=== PATIENT | male | born 1980 ===

== ENCOUNTER 2023-09-02 20:29 | Inpatient (IN) | payer OTHER ==
[~2023-09-02] VITALS: Ht 170.2 cm; Wt 77.4 kg
[2023-09-02 20:58] LABS: APPEARANCE,URINE CLEAR (CLEAR); BILIRUBIN,URINE NEGATIVE (NEGATIVE); COLOR,URINE YELLOW (YELLOW); GLUCOSE, URINE (UA) NEGATIVE (NEGATIVE); KETONES,URINE NEGATIVE (NEGATIVE); LEUKOCYTE ESTERASE ,URINE NEGATIVE Leu/uL (NEGATIVE); NITRATE,URINE NEGATIVE (NEGATIVE); OCCULT BLOOD,URINE MODERATE (NEGATIVE); PH,URINE 6.5 (5.0-8.0); PROTEIN,URINE 20 mg/dL (NEGATIVE); UROBILINOGEN,URINE 0.2 mg/dL (0.2-1.0)
[2023-09-02 21:00] LABS: ADD UA MICROSCOPIC YES
[2023-09-02 21:07] LABS: RAPID GROUP A STREP negative (NEGATIVE)
[2023-09-02 21:11] LABS: SARS-CoV-2, RNA, NAAT NEGATIVE SARS CoV-2 (NEGATIVE)
[2023-09-02 21:14] LABS: WBC,URINE 0-1 /HPF (0-1)
[2023-09-02 21:16] LABS: INFLUENZA TYPE A Negative For Type A (NEGATIVE); INFLUENZA TYPE B Negative For Type B (NEGATIVE)
[2023-09-02 22:10] LABS: BASOPHILS # (AUTO) 0.06 K/uL (0.00-0.20); BASOPHILS % (AUTO) 0.4 % (0.0-5.0); EOSINOPHILS # (AUTO) 1.81 K/uL (0.00-0.70); EOSINOPHILS % (AUTO) 11.7 % (0.0-8.0); HEMATOCRIT 49.7 % (42-54); IMMATURE GRANULOCYTE ABSOLUTE 0.07 K/uL (0-1); LYMPHOCYTES % (AUTO) 6.5 % (21.0-51.0); MEAN CORPUSCULAR HEMOGLOBIN 30.6 pg (27.0-33.0); MEAN CORPUSCULAR HGB CONC 35.8 g/dL (32.0-36.0); MEAN CORPUSCULAR VOLUME 85.4 fL (79-99); MONOCYTES # (AUTO) 0.8 K/uL (0.1-1.0); NEUTROPHILS # (AUTO) 11.8 K/uL (1.8-7.7); NEUTROPHILS % (AUTO) 75.9 % (40.0-77.0); PLATELET COUNT (AUTO) 154 K/uL (130-400); RED BLOOD CELL COUNT(AUTO) 5.82 MIL/uL (4.50-6.20); RED CELL DISTRIBUTION WIDTH 12.6 % (11.0-15.5); WHITE BLOOD COUNT (AUTO) 15.5 K/uL (4.8-10.8)
[2023-09-02 22:18] LABS: CREATININE 0.8 mg/dL (0.5-1.3); POTASSIUM 3.6 mmol/L (3.5-5.1)
[2023-09-02 22:23] LABS: ALBUMIN 3.4 g/dL (3.5-5.0); BILIRUBIN,TOTAL 5.4 mg/dL (0.2-1.0); TOTAL PROTEIN, SERUM 7.6 g/dL (6.0-8.3)
[2023-09-02 23:31] LABS: WBC MORPHOLOGY CONSISTENT W/DIFF
[2023-09-02] MEDS ORDERED: IOHEXOL-350 75 ML VIAL IV ONE (23:56)
[2023-09-03] VITALS (16 sets, daily range): BP systolic 98–147; BP diastolic 64–80; PULSE 83–120; RESP 15–22; O2SAT 97–98
[2023-09-03] MEDS: FAMOTIDINE 20MG VIAL IV STA (00:28)
[2023-09-03] MEDS: KETOROLAC 15MG/ML VIAL (15MG/ML) IV ONE (00:28)
[2023-09-03] MEDS: 0.9%NACL 1000ML 1,000 ML IV STA (00:29)
[2023-09-03] MEDS: ONDANSETRON 4MG INJ IVP STA (00:29)
[2023-09-03] MEDS ORDERED: NITROGLYCERIN 0.4 MG SL TAB SL PRN (03:00)
[2023-09-03] MEDS ORDERED: MORPHINE 4 MG SYG IV PRN (03:00)
[2023-09-03] MEDS ORDERED: ONDANSETRON 4MG INJ IV PRN (03:00)
[2023-09-03] MEDS: ASPIRIN 81MG CHEW TAB PO ONE (03:53)
[2023-09-03] MEDS: LACTATED RINGERS 1000ML 1,000 ML IV SCH (03:54)
[2023-09-03 05:22] LABS: BASOPHILS # (AUTO) 0.04 K/uL (0.00-0.20); BASOPHILS % (AUTO) 0.3 % (0.0-5.0); EOSINOPHILS # (AUTO) 0.01 K/uL (0.00-0.70); EOSINOPHILS % (AUTO) 0.1 % (0.0-8.0); HEMATOCRIT 45.9 % (42-54); IMMATURE GRANULOCYTE ABSOLUTE 0.08 K/uL (0-1); LYMPHOCYTES # (AUTO) 0.8 K/uL (1.0-4.8); LYMPHOCYTES % (AUTO) 5.8 % (21.0-51.0); MEAN CORPUSCULAR HGB CONC 35.1 g/dL (32.0-36.0); MEAN CORPUSCULAR VOLUME 88.4 fL (79-99); MONOCYTES # (AUTO) 1.4 K/uL (0.1-1.0); MONOCYTES % (AUTO) 9.8 % (3.0-13.0); NEUTROPHILS # (AUTO) 11.9 K/uL (1.8-7.7); NEUTROPHILS % (AUTO) 83.4 % (40.0-77.0); PLATELET COUNT (AUTO) 138 K/uL (130-400); RED BLOOD CELL COUNT(AUTO) 5.19 MIL/uL (4.50-6.20); RED CELL DISTRIBUTION WIDTH 12.6 % (11.0-15.5); WHITE BLOOD COUNT (AUTO) 14.3 K/uL (4.8-10.8)
[2023-09-03 05:32] LABS: INR 1.13 (0.85-1.15); PROTHROMBIN TIME 12.1 SEC (9.6-11.6)
[2023-09-03 05:33] LABS: PARTIAL THROMBOPLASTIN TIME 28.5 SEC (26.3-35.5)
[2023-09-03 05:54] LABS: ALBUMIN 2.8 g/dL (3.5-5.0); BILIRUBIN,TOTAL 4.7 mg/dL (0.2-1.0); CREATININE 0.8 mg/dL (0.5-1.3); MAGNESIUM 1.9 mg/dL (1.80-2.40); PHOSPHORUS 1.2 mg/dL (2.5-4.9); POTASSIUM 3.4 mmol/L (3.5-5.1); TOTAL PROTEIN, SERUM 6.6 g/dL (6.0-8.3)
[2023-09-03] MEDS: FAMOTIDINE 20MG VIAL IV SCH (08:18)
[2023-09-03] MEDS: ASPIRIN 81MG CHEW TAB PO SCH (08:18)
[2023-09-03] MEDS ORDERED: POTASSIUM CHLORIDE 20MEQ/100ML 100 ML IV PRN (10:30)
[2023-09-03] MEDS: KCL 20 MEQ ERTAB PO PRN (10:54)
[2023-09-03] MEDS: ZOSYN 3.375GM +NS 50ML IV SCH (10:54)
[2023-09-03] MEDS: ACETAMINOPHEN 325 MG TAB PO PRN (11:08)
[2023-09-03] MEDS ORDERED: PROPOFOL 10 MG/ML 20ML VIAL IV ONE (14:49)
[2023-09-04] VITALS (8 sets, daily range): BP systolic 100–137; BP diastolic 59–83; PULSE 79–116; RESP 18–24; O2SAT 96–97
[2023-09-04] MEDS: KETOROLAC 30MG VIAL (30MG/ML) IVP ONE (00:47)
[2023-09-04] MEDS: KETOROLAC 30MG VIAL (30MG/ML) ONE (00:48)
[2023-09-04 03:37] LABS: BASOPHILS # (AUTO) 0.02 K/uL (0.00-0.20); BASOPHILS % (AUTO) 0.2 % (0.0-5.0); HEMATOCRIT 41.1 % (42-54); IMMATURE GRANULOCYTE ABSOLUTE 0.03 K/uL (0-1); LYMPHOCYTES # (AUTO) 0.5 K/uL (1.0-4.8); LYMPHOCYTES % (AUTO) 5.7 % (21.0-51.0); MEAN CORPUSCULAR HEMOGLOBIN 30.5 pg (27.0-33.0); MEAN CORPUSCULAR HGB CONC 35.3 g/dL (32.0-36.0); MEAN CORPUSCULAR VOLUME 86.3 fL (79-99); MONOCYTES # (AUTO) 0.9 K/uL (0.1-1.0); MONOCYTES % (AUTO) 10.2 % (3.0-13.0); NEUTROPHILS # (AUTO) 7.3 K/uL (1.8-7.7); NEUTROPHILS % (AUTO) 83.6 % (40.0-77.0); PLATELET COUNT (AUTO) 131 K/uL (130-400); RED BLOOD CELL COUNT(AUTO) 4.76 MIL/uL (4.50-6.20); RED CELL DISTRIBUTION WIDTH 12.6 % (11.0-15.5); WHITE BLOOD COUNT (AUTO) 8.7 K/uL (4.8-10.8)
[2023-09-04 03:55] LABS: ALBUMIN 2.6 g/dL (3.5-5.0); BILIRUBIN,TOTAL 2.6 mg/dL (0.2-1.0); MAGNESIUM 1.9 mg/dL (1.80-2.40); POTASSIUM 3.6 mmol/L (3.5-5.1); TOTAL PROTEIN, SERUM 6.5 g/dL (6.0-8.3)
[2023-09-04] MEDS: MAGNESIUM 2GM PREMIX 50ML 50 ML IV PRN (04:09)
[2023-09-04] MEDS: PANTOPRAZOLE 40 MG TAB DR PO SCH (09:29)
[2023-09-04] MEDS: MAGNESIUM CITRATE 296 ML SOLUTION PO ONE (14:18)
[2023-09-04 14:25] LABS: HEPATITIS A IGM ANTIBODY Non-Reactive (Nonreactive); HEPATITIS B CORE IGM ANTIBODY Non-Reactive (Negative); HEPATITIS B SURFACE ANTIGEN Non-Reactive (Nonreactive); HEPATITIS C ANTIBODY Non-Reactive (Nonreactive)
[2023-09-04] MEDS: ACETAMINOPHEN 325 MG TAB PO PRN (19:39)
[2023-09-05] VITALS (9 sets, daily range): BP systolic 106–137; BP diastolic 60–82; PULSE 74–103; RESP 14–20; O2SAT 97
[2023-09-05 03:27] LABS: HEMATOCRIT 40.4 % (42-54); MEAN CORPUSCULAR HEMOGLOBIN 30.9 pg (27.0-33.0); MEAN CORPUSCULAR HGB CONC 36.1 g/dL (32.0-36.0); MEAN CORPUSCULAR VOLUME 85.4 fL (79-99); PLATELET COUNT (AUTO) 135 K/uL (130-400); RED BLOOD CELL COUNT(AUTO) 4.73 MIL/uL (4.50-6.20); RED CELL DISTRIBUTION WIDTH 12.6 % (11.0-15.5); WHITE BLOOD COUNT (AUTO) 6.9 K/uL (4.8-10.8)
[2023-09-05 03:43] LABS: ALBUMIN 2.4 g/dL (3.5-5.0); BILIRUBIN,TOTAL 1.3 mg/dL (0.2-1.0); CREATININE 0.8 mg/dL (0.5-1.3); POTASSIUM 3.4 mmol/L (3.5-5.1); TOTAL PROTEIN, SERUM 6.4 g/dL (6.0-8.3)
[2023-09-05 06:22] LABS: LYMPHOCYTES % (MANUAL) 12 % (22-44); MAN.DIFF COMMENT-IMPRESSION MANUAL DIFFERENTIAL; MONOCYTES % (MANUAL) 14 % (2-9); PLATELET MORPHOLOGY COMMENT ADEQUATE; REACTIVE LYMPHOCYTES 2 % (0-0); SEGMENTED NEUTROPHILS % 72 % (40-70); TOTAL CELLS COUNTED 100
[2023-09-06] VITALS (36 sets, daily range): BP systolic 86–129; BP diastolic 49–83; PULSE 60–107; RESP 12–24; TEMP 100.1; O2SAT 96
[2023-09-06] MEDS: POTASSIUM CHLORIDE 20MEQ/100ML 100 ML IV PRN (07:56)
[2023-09-06] MEDS ORDERED: DEXAMETHASONE SOD PHOSPHATE 10MG/ML 1ML VIAL ONE (08:57)
[2023-09-06] MEDS ORDERED: LIDOCAINE PF 100MG/5ML (2%) SYRINGE 5ML ONE ×2 (08:57→09:00)
[2023-09-06] MEDS ORDERED: ONDANSETRON 4MG INJ ONE (08:58)
[2023-09-06] MEDS ORDERED: PROPOFOL 10 MG/ML 20ML VIAL IV ONE (08:58)
[2023-09-06] MEDS ORDERED: NEOSTIGMINE METHYLSULFATE 1MG/ML IV ONE (08:58)
[2023-09-06] MEDS ORDERED: MIDAZOLAM HCL 1 MG/ML 2ML VIAL ONE (08:58)
[2023-09-06] MEDS ORDERED: GLYCOPYRROLATE 0.2 MG/ML 5 ML VIAL ONE (08:58)
[2023-09-06] MEDS ORDERED: ROCURONIUM BROMIDE 10MG/1ML 5ML VL ONE ×2 (08:58→10:08)
[2023-09-06] MEDS: CEFAZOLIN SODIUM 1 GM VIAL ONE ×2 (09:15→10:06)
[2023-09-06] MEDS ORDERED: FENTANYL CITRATE PF 50 MCG/1 ML 2ML VIAL ONE ×2 (09:33→10:34)
[2023-09-06] MEDS: LIDOCAINE 1%-EPI 1:100,000 20 ML VIAL ONE (10:35)
[2023-09-06] MEDS: BUPIVACAINE/PF 0.5% 30ML VIAL ONE (10:35)
[2023-09-06] MEDS: MEPERIDINE-PF 25 MG/ML SYG ONE (11:13)
[2023-09-06] MEDS: ONDANSETRON 4MG INJ ONE (11:13)
[2023-09-06] MEDS: ACETAMINOPHEN 1,000 MG/100 ML VIAL IV ONE (11:46)
[2023-09-06] MEDS ORDERED: HYDROMORPHONE 1 MG INJ IVP PRN (13:00)
[2023-09-06] MEDS: KETOROLAC 15MG/ML VIAL (15MG/ML) IM PRN (13:33)
[2023-09-06] MEDS: LACTATED RINGERS 1000ML IV ONE (13:33)
[2023-09-06] MEDS: POTASSIUM CHLORIDE 10% ELIXIR 20 MEQ/15 ML UDCUP PO PRN (17:47)
[2023-09-06] MEDS: OXYCODONE/ACETAMIN 5/325MG TAB PO PRN (17:58)
[2023-09-07] VITALS: BP 118/75; PULSE 92; RESP 17
[2023-09-07 04:00] VITALS: BP 122/75; PULSE 90; RESP 17
[2023-09-07 05:05] LABS: BASOPHILS # (AUTO) 0.05 K/uL (0.00-0.20); BASOPHILS % (AUTO) 0.5 % (0.0-5.0); EOSINOPHILS # (AUTO) 0.12 K/uL (0.00-0.70); EOSINOPHILS % (AUTO) 1.2 % (0.0-8.0); IMMATURE GRANULOCYTE ABSOLUTE 0.05 K/uL (0-1); LYMPHOCYTES # (AUTO) 1.6 K/uL (1.0-4.8); LYMPHOCYTES % (AUTO) 16.7 % (21.0-51.0); MEAN CORPUSCULAR HEMOGLOBIN 30.7 pg (27.0-33.0); MEAN CORPUSCULAR HGB CONC 34.4 g/dL (32.0-36.0); MEAN CORPUSCULAR VOLUME 89.1 fL (79-99); MONOCYTES % (AUTO) 9.9 % (3.0-13.0); NEUTROPHILS # (AUTO) 6.9 K/uL (1.8-7.7); NEUTROPHILS % (AUTO) 71.2 % (40.0-77.0); PLATELET COUNT (AUTO) 185 K/uL (130-400); RED CELL DISTRIBUTION WIDTH 12.8 % (11.0-15.5); WHITE BLOOD COUNT (AUTO) 9.7 K/uL (4.8-10.8)
[2023-09-07 05:25] LABS: ALBUMIN 2.4 g/dL (3.5-5.0); BILIRUBIN,TOTAL 0.9 mg/dL (0.2-1.0); CREATININE 0.8 mg/dL (0.5-1.3); POTASSIUM 3.8 mmol/L (3.5-5.1); TOTAL PROTEIN, SERUM 6.7 g/dL (6.0-8.3)
[2023-09-07 08:00] VITALS: BP 122/78; PULSE 104; RESP 18; O2SAT 96
[2023-09-07 12:00] VITALS: BP 117/80; PULSE 100; RESP 18
[2023-09-07 16:00] VITALS: BP 104/70; PULSE 89
[2023-09-07 20:00] VITALS: BP 119/72; PULSE 105; RESP 18
[2023-09-08] VITALS (7 sets, daily range): BP systolic 111–122; BP diastolic 69–81; PULSE 96–108; RESP 18; O2SAT 96
[2023-09-08] MEDS ORDERED: AMOX1TAB16 PO (15:13)
== END 2023-09-08 17:00 | disposition home or self-care (01) | DRG 418 ==
LOC: EDH 20:29 → EDHIP 20:30 → 2DH 09-03 03:48 → 4BH 09-05 16:50
PROVIDERS: ADMIT Internal Medicine; ATTEND Internal Medicine
PROC: 0DB98ZX Excision of Duodenum, Via Natural or Artificial Opening Endoscopic, Diagnostic (ICD-10-PCS; 2023-09-03)
PROC: 0DB68ZX Excision of Stomach, Via Natural or Artificial Opening Endoscopic, Diagnostic (ICD-10-PCS; 2023-09-03)
PROC: 0FT44ZZ Resection of Gallbladder, Percutaneous Endoscopic Approach (ICD-10-PCS; principal; 2023-09-06 09:00)
DX: K80.12 Calculus of gallbladder with acute and chronic cholecystitis without obstruction (principal); R65.10 Systemic inflammatory response syndrome (SIRS) of non-infectious origin without acute organ dysfunction; R17 Unspecified jaundice; R16.0 Hepatomegaly, not elsewhere classified; K29.00 Acute gastritis without bleeding; K21.00 Gastro-esophageal reflux disease with esophagitis, without bleeding; I95.9 Hypotension, unspecified; Z20.822 Contact with and (suspected) exposure to COVID-19; E87.6 Hypokalemia; K59.00 Constipation, unspecified; K82.8 Other specified diseases of gallbladder; E80.6 Other disorders of bilirubin metabolism; R74.01 Elevation of levels of liver transaminase levels; R73.9 Hyperglycemia, unspecified; Z83.3 Family history of diabetes mellitus; Z59.7 Insufficient social insurance and welfare support
CPT/HCPCS: 36415; 43239; 71045; 74177; 74183; 76705; 78226; 80053; 80074; 81001; 82948; 83605; 83690; 83735; 84100; 84145; 84484; 85025; 85610; 85730; 86850; 86900; 86901; 87040; 87635; 87804; 87880; 88304; 88305; 88312; 93005; A9537; G0378; J0690; J1100; J1885; J2001; J2175; J2250; J2405; J2543; J2704; J2710; J3010; J3475; J3480; J3490; J7030; Q9967; A4215; A4216; A4222; A4223; A4452; A4600; A4620; A4649; A4657; A4930; A6206; C1769; J0665